=== PATIENT | male | born 1965 ===

== ENCOUNTER 2017-10-23 20:33 | Emergency (ER) | payer OTHER ==
[2017-10-23 20:40] VITALS: O2SAT 100
[2017-10-23] MEDS ORDERED: Oxycodone/Acetaminophen 5/325 mg Tab PO STA (20:52)
[2017-10-23] MEDS ORDERED: Oxycodone/Acetaminophen 5/325 mg Tab ONE (20:58)
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
[2017-10-23 22:31] VITALS: BP 142/98; PULSE 80; RESP 19; TEMP 98
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
--- NOTE | 2017-10-24 08:45 | RAD ---
PROCEDURE: Left Knee Radiographs. HISTORY: Pain. COMPARISON: None. FINDINGS: BONES: No acute fracture. JOINTS: Unremarkable. JOINT EFFUSION: None. OTHER FINDINGS: None. IMPRESSION: No demonstrated fracture or dislocation.
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
== END 2017-10-23 22:28 | disposition home or self-care (01) ==
LOC: H.ER 20:33
DX: S09.90XA Unspecified injury of head, initial encounter (principal); S13.4XXA Sprain of ligaments of cervical spine, initial encounter; M25.511 Pain in right shoulder; M25.562 Pain in left knee; V43.62XA Car passenger injured in collision with other type car in traffic accident, initial encounter; Y92.410 Unspecified street and highway as the place of occurrence of the external cause; M54.12 Radiculopathy, cervical region; Z88.0 Allergy status to penicillin